=== PATIENT | female | born 1970 | race Caucasian/White ===

== ENCOUNTER 2017-08-19 14:18 | Emergency (ER) | payer OTHER ==
[2017-08-19 17:56] VITALS: BP 126/78
== END 2017-08-19 17:56 | disposition home or self-care (01) ==
LOC: ED 14:18
DX: M54.5 Low back pain (principal)
CPT/HCPCS: J1885; Q0092

== ENCOUNTER 2017-08-20 20:27 | Emergency (ER) | payer OTHER ==
[~2017-08-20] VITALS: Ht 162.6 cm; Wt 100.7 kg
[2017-08-20 20:43] VITALS: BP 140/82; Ht 162.6 cm; Wt 100.7 kg
== END 2017-08-21 00:16 | disposition left against medical advice (07) ==
LOC: ED 20:27
DX: Z53.21 Procedure and treatment not carried out due to patient leaving prior to being seen by health care provider (principal)

== ENCOUNTER 2018-07-04 21:51 | Inpatient (IN) | payer OTHER ==
[~2018-07-04] VITALS: Ht 162.6 cm; Wt 92.1 kg
[2018-07-04 22:04] VITALS: Ht 162.6 cm; Wt 92.1 kg
[2018-07-04 23:26] LABS: BASOPHIL % 0.4 % (0-2); PLATELET COUNT 318 x10^3mcL (130-400)
[2018-07-04 23:32] LABS: RED CELL DISTRIBUTION WIDTH 17.5 % (11.5-14.5)
[2018-07-04 23:39] LABS: CALCIUM 9.8 mg/dL (8.5-10.1); CARBON DIOXIDE 26.2 mmol/L (21-32); CHLORIDE SERUM 96 mmol/L (98-107); CREATININE SERUM 0.9 mg/dL (0.6-1.0); GFR1 > 60 mL/min; GLUCOSE SERUM 101 mg/dL (74-106); POTASSIUM SERUM 3.5 mmol/L (3.5-5.1); SODIUM SERUM 133 mmol/L (136-145)
[2018-07-04 23:43] LABS: ALKALINE PHOSPHATASE 158 U/L (46-116); ALT/SGPT 35 U/L (14-59); AST/SGOT 44 U/L (15-37); BILIRUBIN TOTAL 0.4 mg/dL (0.20-1.00)
[2018-07-04 23:44] LABS: ALBUMIN 2.6 g/dL (3.4-5.0); TOTAL PROTEIN, SERUM 9.7 g/dL (6.4-8.2)
[2018-07-04 23:55] LABS: CK-MB 0.6 ng/mL (0-3.6)
[2018-07-05] VITALS (8 sets, daily range): BP systolic 111–152; BP diastolic 56–74
[2018-07-05 01:01] LABS: UA SPECIFIC GRAVITY >=1.030 (1.005-1.035); microscopic required? YES; urine erythrocyte TRACE (NEGATIVE)
[2018-07-05] MEDS ORDERED: CYMBALTA30 M1 PO (02:15)
[2018-07-05] MEDS ORDERED: HYDROXYCHLOROQ200 MG PO (02:16)
[2018-07-05] MEDS ORDERED: LOSARTAN POTASS25 M1 PO (02:16)
[2018-07-05 04:25] LABS: AMPHETAMINE QUAL UR NONE DETECTED (See below)
[2018-07-05 04:26] LABS: MAGNESIUM 2.3 mg/dL (1.8-2.4); PHOSPHOROUS 3.6 mg/dL (2.5-4.9)
[2018-07-05 04:27] LABS: CHOLESTEROL/HDL RATIO 6.4
[2018-07-05 06:15] LABS: BASOPHIL % 0.3 % (0-2); PLATELET COUNT 252 x10^3mcL (130-400)
[2018-07-05 06:32] LABS: CALCIUM 8.6 mg/dL (8.5-10.1); CHLORIDE SERUM 101 mmol/L (98-107); CREATININE SERUM 0.8 mg/dL (0.6-1.0); GFR1 > 60 mL/min; GLUCOSE SERUM 114 mg/dL (74-106); POTASSIUM SERUM 3.4 mmol/L (3.5-5.1); SODIUM SERUM 136 mmol/L (136-145)
[2018-07-05 07:35] LABS: RED CELL DISTRIBUTION WIDTH 17.1 % (11.5-14.5)
[2018-07-06 06:02] VITALS: BP 139/80
[2018-07-06 07:19] LABS: BASOPHIL % 0.2 % (0-2); PLATELET COUNT 275 x10^3mcL (130-400)
[2018-07-06 07:20] LABS: RED CELL DISTRIBUTION WIDTH 17.4 % (11.5-14.5)
[2018-07-06 07:40] LABS: CALCIUM 8.7 mg/dL (8.5-10.1); CARBON DIOXIDE 29.6 mmol/L (21-32); CHLORIDE SERUM 103 mmol/L (98-107); CREATININE SERUM 0.7 mg/dL (0.6-1.0); GFR1 > 60 mL/min; GLUCOSE SERUM 92 mg/dL (74-106); POTASSIUM SERUM 4.4 mmol/L (3.5-5.1); SODIUM SERUM 138 mmol/L (136-145)
[2018-07-06 08:43] VITALS: BP 138/78
[2018-07-06 12:48] VITALS: BP 156/87
[2018-07-06 16:18] VITALS: BP 142/89
[2018-07-06 20:43] VITALS: BP 130/80
[2018-07-07 05:03] VITALS: BP 128/80
[2018-07-07 07:26] LABS: BASOPHIL % 0.4 % (0-2); PLATELET COUNT 317 x10^3mcL (130-400)
[2018-07-07 07:28] LABS: RED CELL DISTRIBUTION WIDTH 17.1 % (11.5-14.5)
[2018-07-07 07:46] LABS: CALCIUM 8.7 mg/dL (8.5-10.1); CHLORIDE SERUM 100 mmol/L (98-107); CREATININE SERUM 0.6 mg/dL (0.6-1.0); GFR1 > 60 mL/min; GLUCOSE SERUM 90 mg/dL (74-106); POTASSIUM SERUM 3.9 mmol/L (3.5-5.1); SODIUM SERUM 135 mmol/L (136-145)
[2018-07-07 09:08] VITALS: BP 128/77
[2018-07-07 12:44] VITALS: BP 116/55
[2018-07-07 17:01] VITALS: BP 114/67
[2018-07-07 20:47] VITALS: BP 128/74
[2018-07-08 05:04] VITALS: BP 104/68
[2018-07-08 05:06] VITALS: BP 129/74
[2018-07-08 09:20] VITALS: BP 120/69
[2018-07-08 12:15] VITALS: BP 129/75
[2018-07-08 16:14] VITALS: BP 141/95
[2018-07-08 21:02] VITALS: BP 139/91
[2018-07-09 05:05] VITALS: BP 119/72
[2018-07-09 06:59] LABS: BASOPHIL % 0.3 % (0-2)
[2018-07-09 07:10] LABS: PLATELET COUNT 403 x10^3mcL (130-400); RED CELL DISTRIBUTION WIDTH 16.8 % (11.5-14.5)
[2018-07-09 07:23] LABS: CALCIUM 9.3 mg/dL (8.5-10.1); CARBON DIOXIDE 29.6 mmol/L (21-32); CHLORIDE SERUM 101 mmol/L (98-107); CREATININE SERUM 0.7 mg/dL (0.6-1.0); GFR1 > 60 mL/min; GLUCOSE SERUM 83 mg/dL (74-106); MAGNESIUM 1.8 mg/dL (1.8-2.4); PHOSPHOROUS 4.2 mg/dL (2.5-4.9); POTASSIUM SERUM 4.5 mmol/L (3.5-5.1); SODIUM SERUM 137 mmol/L (136-145)
[2018-07-09 12:18] VITALS: BP 118/73
[2018-07-09 16:07] VITALS: BP 120/89
[2018-07-09 21:58] VITALS: BP 115/76
[2018-07-10 05:02] VITALS: BP 120/72
[2018-07-10 06:51] LABS: CARBON DIOXIDE 30.1 mmol/L (21-32); CHLORIDE SERUM 104 mmol/L (98-107); CREATININE SERUM 0.6 mg/dL (0.6-1.0); GFR1 > 60 mL/min; GLUCOSE SERUM 92 mg/dL (74-106); POTASSIUM SERUM 4.5 mmol/L (3.5-5.1); SODIUM SERUM 139 mmol/L (136-145)
[2018-07-10 07:27] LABS: BASOPHIL % 0.3 % (0-2); PLATELET COUNT 405 x10^3mcL (130-400); RED CELL DISTRIBUTION WIDTH 16.5 % (11.5-14.5)
[2018-07-10 08:45] VITALS: BP 125/70
[2018-07-10 09:44] VITALS: BP 125/70
[2018-07-10 13:30] VITALS: BP 143/88
[2018-07-10 17:00] VITALS: BP 153/109
[2018-07-10 20:19] VITALS: BP 141/79
[2018-07-11 04:35] VITALS: BP 124/73
[2018-07-11 06:57] LABS: BASOPHIL % 0.4 % (0-2)
[2018-07-11 06:58] LABS: PLATELET COUNT 415 x10^3mcL (130-400); RED CELL DISTRIBUTION WIDTH 17.1 % (11.5-14.5)
[2018-07-11 07:04] LABS: CALCIUM 9.1 mg/dL (8.5-10.1); CARBON DIOXIDE 28.4 mmol/L (21-32); CHLORIDE SERUM 101 mmol/L (98-107); CREATININE SERUM 0.7 mg/dL (0.6-1.0); GFR1 > 60 mL/min; GLUCOSE SERUM 93 mg/dL (74-106); POTASSIUM SERUM 3.9 mmol/L (3.5-5.1); SODIUM SERUM 136 mmol/L (136-145)
[2018-07-11 10:45] VITALS: BP 120/79
[2018-07-11 13:02] VITALS: BP 131/83
[2018-07-11 18:42] VITALS: BP 136/86
[2018-07-11 20:06] VITALS: BP 134/78
[2018-07-12 06:05] VITALS: BP 130/81
[2018-07-12 07:12] LABS: CARBON DIOXIDE 29.5 mmol/L (21-32); CHLORIDE SERUM 100 mmol/L (98-107); CREATININE SERUM 0.7 mg/dL (0.6-1.0); GFR1 > 60 mL/min; GLUCOSE SERUM 92 mg/dL (74-106); POTASSIUM SERUM 3.9 mmol/L (3.5-5.1); SODIUM SERUM 138 mmol/L (136-145)
[2018-07-12 07:39] LABS: BASOPHIL % 0.3 % (0-2); PLATELET COUNT 390 x10^3mcL (130-400)
[2018-07-12 07:40] LABS: RED CELL DISTRIBUTION WIDTH 17.4 % (11.5-14.5)
[2018-07-12 08:02] VITALS: BP 140/82
[2018-07-12 12:10] VITALS: BP 138/77
[2018-07-12 15:56] VITALS: BP 142/86
[2018-07-12 15:58] VITALS: BP 148/99
[2018-07-12 21:07] VITALS: BP 110/63
[2018-07-13 05:34] VITALS: BP 144/90
[2018-07-13 07:51] VITALS: BP 140/88
[2018-07-13 12:59] VITALS: BP 130/79
[2018-07-13 16:24] VITALS: BP 137/86
[2018-07-13 18:02] VITALS: BP 137/86
[2018-07-13 19:35] VITALS: BP 128/85
[2018-07-14 05:48] VITALS: BP 128/84
[2018-07-14 06:07] LABS: CALCIUM 9.1 mg/dL (8.5-10.1); CARBON DIOXIDE 28.7 mmol/L (21-32); CHLORIDE SERUM 98 mmol/L (98-107); CREATININE SERUM 0.9 mg/dL (0.6-1.0); GFR1 > 60 mL/min; GLUCOSE SERUM 95 mg/dL (74-106); POTASSIUM SERUM 4.6 mmol/L (3.5-5.1); SODIUM SERUM 131 mmol/L (136-145)
[2018-07-14 06:24] LABS: BASOPHIL % 0.2 % (0-2); PLATELET COUNT 322 x10^3mcL (130-400)
[2018-07-14 07:37] LABS: RED CELL DISTRIBUTION WIDTH 17.6 % (11.5-14.5)
[2018-07-14 10:13] VITALS: BP 122/73
[2018-07-14 13:57] VITALS: BP 125/78
[2018-07-14 16:24] VITALS: BP 134/88
[2018-07-14 20:28] VITALS: BP 125/70
[2018-07-15 05:30] VITALS: BP 136/86
[2018-07-15 06:44] LABS: CALCIUM 9.1 mg/dL (8.5-10.1); CARBON DIOXIDE 26.7 mmol/L (21-32); CHLORIDE SERUM 98 mmol/L (98-107); CREATININE SERUM 0.9 mg/dL (0.6-1.0); GFR1 > 60 mL/min; GLUCOSE SERUM 97 mg/dL (74-106); POTASSIUM SERUM 4.6 mmol/L (3.5-5.1); SODIUM SERUM 130 mmol/L (136-145)
[2018-07-15 06:57] LABS: BASOPHIL % 0 % (0-2); PLATELET COUNT 265 x10^3mcL (130-400); RED CELL DISTRIBUTION WIDTH 17.1 % (11.5-14.5)
[2018-07-15 08:00] VITALS: BP 104/64
[2018-07-15 13:00] VITALS: BP 112/69
[2018-07-15] MEDS ORDERED: LAC PO (13:08)
[2018-07-15] MEDS ORDERED: AUG500 PO (13:08)
[2018-07-15] MEDS ORDERED: LEVOFLOXACIN500 M1 PO (13:08)
[2018-07-15] MEDS ORDERED: VENTOLIN H0.09 MG/A1 INH (13:10)
[2018-07-15 13:52] VITALS: BP 112/69
[2018-07-15 14:46] VITALS: BP 139/75
== END 2018-07-15 17:17 | disposition home or self-care (01) | DRG 133 ==
LOC: ED 21:51 → DU 07-05 02:03
PROVIDERS: Emergency Medicine; Family Medicine; General Practice; Internal Medicine
PROC: 0B9C8ZX Drainage of Right Upper Lung Lobe, Via Natural or Artificial Opening Endoscopic, Diagnostic (ICD-10-PCS; principal; 2018-07-09 09:00)
DX: J96.01 Acute respiratory failure with hypoxia (principal); N17.0 Acute kidney failure with tubular necrosis; E43 Unspecified severe protein-calorie malnutrition; J15.9 Unspecified bacterial pneumonia; R65.10 Systemic inflammatory response syndrome (SIRS) of non-infectious origin without acute organ dysfunction; E87.1 Hypo-osmolality and hyponatremia; M05.10 Rheumatoid lung disease with rheumatoid arthritis of unspecified site; F41.9 Anxiety disorder, unspecified; M06.9 Rheumatoid arthritis, unspecified; E66.9 Obesity, unspecified; E87.6 Hypokalemia; D64.9 Anemia, unspecified; D47.3 Essential (hemorrhagic) thrombocythemia; N39.0 Urinary tract infection, site not specified; R80.9 Proteinuria, unspecified; I10 Essential (primary) hypertension; Z68.34 Body mass index [BMI] 34.0-34.9, adult; Z90.711 Acquired absence of uterus with remaining cervical stump; Z90.49 Acquired absence of other specified parts of digestive tract; Z98.51 Tubal ligation status; Z23 Encounter for immunization
CPT/HCPCS: 83880; 85378; 86580; 87116; 87206; 87804; 94150; J0330; J0456; J0696; J1885; J2270; J2405; J2704; J3010; J3490; J7030; J7120; J7620; Q0092; Q0162; Q9967